=== PATIENT | male | born 1960 | race Two or more races ===

== ENCOUNTER 2023-09-27 14:50 | Inpatient (IN) | payer MEDICARE, OTHER ==
[~2023-09-27] VITALS: Ht 167.6 cm; Wt 72.6 kg
[2023-09-27] MEDS ORDERED: DIPH25TA62 PO (15:21)
[2023-09-27] MEDS ORDERED: HALO5TAB PO (15:21)
[2023-09-27] MEDS ORDERED: QUET100T PO (15:21)
[2023-09-27] MEDS ORDERED: CYCL5POW MC (15:21)
[2023-09-27] MEDS ORDERED: TRIH5TAB3 PO (15:21)
[2023-09-27] MEDS ORDERED: METO5TAB87 PO (15:21)
[2023-09-27] MEDS ORDERED: SERT50TA PO (15:21)
[2023-09-27] MEDS ORDERED: HYDR-4075 PO (15:21)
[2023-09-27] MEDS ORDERED: FLUP5TAB14 PO (15:21)
[2023-09-27] MEDS ORDERED: CHOL400T28 PO (15:21)
[2023-09-27] MEDS ORDERED: NIFE-35 PO (15:21)
[2023-09-27] MEDS ORDERED: MELA5TAB21 PO (15:21)
[2023-09-27] MEDS ORDERED: EPOE200012 SUBCUT (15:21)
[2023-09-27] MEDS ORDERED: DIVA-78 PO (15:21)
[2023-09-27] MEDS ORDERED: HYDR-3974 PO (15:21)
[2023-09-27 15:35] LABS: BASOPHILS # (AUTO) 0.1 K/UL (0.0-0.2); BASOPHILS % (AUTO) 0.8 % (0.0-2.0); EOSINOPHILS # (AUTO) 0.2 K/uL (0.0-0.7); HEMATOCRIT 36.7 % (36.7-47.1); HEMOGLOBIN 11.6 g/dL (12.5-16.3); LYMPHOCYTES # (AUTO) 1.9 K/uL (0.8-4.8); LYMPHOCYTES % (AUTO) 23.3 % (20.5-51.5); MEAN CORPUSCULAR HEMOGLOBIN 31.2 uug (23.8-33.4); MEAN CORPUSCULAR HGB CONC 32 g/dL (32.5-36.3); MEAN CORPUSCULAR VOLUME 98.3 fL (73.0-96.2); NEUTROPHILS # (AUTO) 4.8 K/uL (1.8-8.9); NEUTROPHILS % (AUTO) 59.9 % (38.5-71.5); PLATELET COUNT (AUTO) 203 K/uL (152-348); RED BLOOD CELL COUNT(AUTO) 3.73 MIL/uL (4.06-5.63); RED CELL DISTRIBUTION WIDTH 15.6 % (12.1-16.2)
[2023-09-27 15:45] LABS: DIFFERENTIAL COMMENT 1
[2023-09-27 15:47] LABS: CALCIUM 9.2 mg/dL (8.5-10.1); CARBON DIOXIDE 31 mmol/L (21-32); CHLORIDE 103 mmol/L (98-107); POTASSIUM 3.4 mmol/L (3.5-5.1); SODIUM SERUM 144 mmol/L (136-145); UREA NITROGEN, BLOOD 48 mg/dL (7-18)
[2023-09-27 15:49] LABS: GLUCOSE 49 mg/dL (74-106)
[2023-09-27 15:52] LABS: ALANINE AMINOTRANSFERASE 10 U/L (16-63); ALBUMIN 2.9 g/dL (3.4-5.0); ALKALINE PHOSPHATASE 132 U/L (50-136); ASPARTATE AMINOTRANSFERASE 10 U/L (15-37); BILIRUBIN,DIRECT 0.1 mg/dL (0.0-0.2); BILIRUBIN,TOTAL 0.2 mg/dL (0.2-1.0); TOTAL PROTEIN, SERUM 7.5 g/dL (6.4-8.2)
[2023-09-27 16:00] LABS: THYROID STIMULATING HORMONE 5.138 mIU/mL (0.358-3.740)
[2023-09-27 16:03] LABS: ETHANOL < 3 MG/DL (0-10)
[2023-09-27 16:55] LABS: *BILIRUBIN,URIN NEGATIVE (NEGATIVE); *CLARITY,URINE CLEAR (CLEAR); *COLOR,URINE YELLOW (YELLOW); *KETONES,URINE NEGATIVE (NEGATIVE); *UROBILINOGEN,URINE 0.2 E.U./dl (NORMAL); LEUKOCYTE ESTERASE ,URINE NEGATIVE (NEGATIVE); NITRITE, URINE NEGATIVE (NEGATIVE); UGLUCOSE TRACE (NEGATIVE)
[2023-09-27 17:02] LABS: *BLOOD, URINE TRACE (NEGATIVE); *PROTEIN,URINE 3+ (NEGATIVE)
[2023-09-27 17:08] LABS: *AMPHETAMINE, URINE NEGATIVE (NEGATIVE); *BARBITURATE, URINE NEGATIVE (NEGATIVE); *BENZODIAZEPINE, URINE NEGATIVE (NEGATIVE); *CANNABINOID, URINE NEGATIVE (NEGATIVE); *COCCAINE, URINE NEGATIVE (NEGATIVE); *OPIATE, URINE POSITIVE (NEGATIVE); *PHENCYCLIDINE SCREEN,URINE NEGATIVE (NEGATIVE); FENTANYL, URINE NEGATIVE (NEGATIVE)
[2023-09-27 17:16] LABS: BACTERIA,URINE NONE SEEN /HPF (NONE SEEN); RBC,URINE 0-3 /HPF (0-3); WBC,URINE NONE SEEN /HPF (0-3)
[2023-09-27 17:17] LABS: SQUAMOUS EPITHELIAL CELL,UR FEW /HPF (NONE SEEN)
[2023-09-27] MEDS ORDERED: POTASSIUM BICARBONATE/CIT AC 25 MEQ TABLET.EFF ONE (17:45)
[2023-09-27] MEDS: POTASSIUM BICARBONATE/CIT AC 25 MEQ TABLET.EFF PO ONE (17:53)
[2023-09-27] MEDS: hydrALAZINE HCL 10 MG TABLET PO SCH (17:53)
[2023-09-27] MEDS: DIVALPROEX 500 MG TABLET.DR PO SCH (17:53)
[2023-09-27] MEDS ORDERED: HYDROCODONE/APAP 5-325MG TABLET ONE (18:51)
[2023-09-27] MEDS: HYDROCODONE/APAP 5-325MG TABLET PO ONE (18:53)
[2023-09-27] MEDS ORDERED: IV NS 1000 ML 1,000 ML IV PRN (19:30)
[2023-09-27] MEDS ORDERED: MAGNESIUM HYDROXIDE 30 ML LIQUID UDC PO PRN (19:30)
[2023-09-27] MEDS ORDERED: REMEDY ESSENTIAL ZINC PASTE 113 GM TP PRN (19:30)
[2023-09-27] MEDS ORDERED: CEFTRIAXONE 1 G in IV DEXTROSE 5% 50 ML IV SCH (19:30)
[2023-09-27] MEDS ORDERED: AZITHROMYCIN IV 500 MG in IV DEXTROSE 5% 250 ML IV SCH (19:30)
[2023-09-27] MEDS ORDERED: ONDANSETRON 4 MG/2 ML VIAL IV PRN (19:30)
[2023-09-27] MEDS ORDERED: ACETAMINOPHEN 325 MG TABLET PO PRN (19:30)
[2023-09-27] MEDS ORDERED: DEXTROSE 50% 50 ML DISP.SYRIN IV PRN (20:00)
[2023-09-27 21:16] VITALS: BP 145/68; TEMP 97.8; O2SAT 97
[2023-09-27] MEDS: BLOOD SUGAR DIAGNOSTIC 1 EACH STRIP VI SCH (21:35)
[2023-09-27] MEDS: INSULIN REGULAR, HUMAN 300 UNIT/3 ML VIAL SQ PRN (21:44)
[2023-09-27] MEDS ORDERED: CEFTRIAXONE /D5W 50ML IVPB **ER PYXIS IV ONE (22:15)
[2023-09-27] MEDS ORDERED: AZITHROMYCIN 500MG/ D5W 250ML IVPB **ER PYXIS ONLY IV ONE (22:15)
[2023-09-27] MEDS: CEFTRIAXONE 1 G in IV DEXTROSE 5% 50 ML IV SCH (22:45)
[2023-09-27] MEDS: AZITHROMYCIN IV 500 MG in IV DEXTROSE 5% 250 ML IV SCH (23:43)
[2023-09-27] MEDS: HYDROMORPHONE 1 MG/1 ML DISP.SYRIN IVP PRN (23:43)
[2023-09-28 06:00] VITALS: BP 148/71; TEMP 97.7; O2SAT 99
[2023-09-28 07:28] LABS: BASOPHILS % (AUTO) 0.6 % (0.0-2.0); EOSINOPHILS # (AUTO) 0.3 K/uL (0.0-0.7); EOSINOPHILS % (AUTO) 3.7 % (0.0-7.0); HEMATOCRIT 37.3 % (36.7-47.1); LYMPHOCYTES # (AUTO) 1.9 K/uL (0.8-4.8); LYMPHOCYTES % (AUTO) 25.9 % (20.5-51.5); MEAN CORPUSCULAR HEMOGLOBIN 31.8 uug (23.8-33.4); MEAN CORPUSCULAR HGB CONC 32 g/dL (32.5-36.3); MEAN CORPUSCULAR VOLUME 98.8 fL (73.0-96.2); MONOCYTES # (AUTO) 0.9 K/uL (0.1-1.30); MONOCYTES % (AUTO) 12.4 % (0.0-11.0); NEUTROPHILS # (AUTO) 4.1 K/uL (1.8-8.9); NEUTROPHILS % (AUTO) 57.4 % (38.5-71.5); PLATELET COUNT (AUTO) 181 K/uL (152-348); RED BLOOD CELL COUNT(AUTO) 3.77 MIL/uL (4.06-5.63); RED CELL DISTRIBUTION WIDTH 15.3 % (12.1-16.2); WHITE BLOOD COUNT (AUTO) 7.2 K/uL (3.6-10.2)
[2023-09-28 07:34] LABS: CALCIUM 8.8 mg/dL (8.5-10.1); CREATININE 3.7 mg/dL (0.6-1.3); MAGNESIUM 2.5 mg/dL (1.8-2.4); PHOSPHOROUS 5.4 mg/dL (2.5-4.9); POTASSIUM 4.4 mmol/L (3.5-5.1)
[2023-09-28 07:38] LABS: DIFFERENTIAL COMMENT 1
[2023-09-28] MEDS: SERTRALINE HCL 50 MG TABLET PO SCH (08:15)
[2023-09-28] MEDS: CHOLECALCIFEROL 400 UNITS TABLET PO SCH (08:15)
[2023-09-28] MEDS: NICOTINE 21 MG/24HR PATCH TD SCH (08:17)
[2023-09-28] MEDS: NIFEdipine XL 30 MG TABSR PO SCH (08:17)
[2023-09-28] MEDS ORDERED: SEVE800T8 PO (10:31)
[2023-09-28] MEDS: HYDROCODONE/APAP 10-325 MG TABLET PO PRN (11:19)
[2023-09-28 11:49] VITALS: BP 142/78; TEMP 98.3; O2SAT 98
[2023-09-28 13:16] LABS: FREE T4 (FREE THYROXINE) 0.45 ng/dL (0.76-1.46)
[2023-09-28] MEDS ORDERED: HYDROMORPHONE 1 MG/1 ML DISP.SYRIN IV PRN (14:15)
[2023-09-28 16:20] VITALS: BP 154/71; TEMP 97.9; O2SAT 98
[2023-09-28] MEDS: SEVELAMER CARBONATE 800 MG TABLET PO SCH (16:43)
[2023-09-28] MEDS: QUETIAPINE FUMARATE 100 MG TABLET PO SCH (17:22)
[2023-09-28] MEDS: FLUPHENAZINE HCL 5 MG TABLET PO SCH (17:22)
[2023-09-28] MEDS: HYDROMORPHONE 1 MG/1 ML DISP.SYRIN IV PRN (17:29)
[2023-09-28 19:56] VITALS: BP 159/70; TEMP 98.1; O2SAT 100
[2023-09-28 20:30] VITALS: BP 147/77; O2SAT 99
[2023-09-28] MEDS: MELATONIN 3 MG TABLET PO SCH (20:53)
[2023-09-29 04:50] VITALS: BP 144/75; TEMP 97.1; O2SAT 97
[2023-09-29 07:27] LABS: BASOPHILS % (AUTO) 0.8 % (0.0-2.0); EOSINOPHILS # (AUTO) 0.3 K/uL (0.0-0.7); EOSINOPHILS % (AUTO) 5.2 % (0.0-7.0); HEMATOCRIT 39.6 % (36.7-47.1); HEMOGLOBIN 12.7 g/dL (12.5-16.3); LYMPHOCYTES # (AUTO) 1.7 K/uL (0.8-4.8); LYMPHOCYTES % (AUTO) 26.5 % (20.5-51.5); MEAN CORPUSCULAR HGB CONC 32 g/dL (32.5-36.3); MEAN CORPUSCULAR VOLUME 99.5 fL (73.0-96.2); MONOCYTES # (AUTO) 0.8 K/uL (0.1-1.30); MONOCYTES % (AUTO) 12.9 % (0.0-11.0); NEUTROPHILS # (AUTO) 3.5 K/uL (1.8-8.9); NEUTROPHILS % (AUTO) 54.6 % (38.5-71.5); PLATELET COUNT (AUTO) 191 K/uL (152-348); RED BLOOD CELL COUNT(AUTO) 3.98 MIL/uL (4.06-5.63); RED CELL DISTRIBUTION WIDTH 15.4 % (12.1-16.2); WHITE BLOOD COUNT (AUTO) 6.4 K/uL (3.6-10.2)
[2023-09-29 07:29] LABS: DIFFERENTIAL COMMENT 1
[2023-09-29 07:46] LABS: ALBUMIN 2.6 g/dL (3.4-5.0); BILIRUBIN,TOTAL 0.2 mg/dL (0.2-1.0); CALCIUM 8.5 mg/dL (8.5-10.1); CREATININE 4.4 mg/dL (0.6-1.3); MAGNESIUM 2.6 mg/dL (1.8-2.4); PHOSPHOROUS 6.4 mg/dL (2.5-4.9); POTASSIUM 5.1 mmol/L (3.5-5.1); TOTAL PROTEIN, SERUM 6.9 g/dL (6.4-8.2)
[2023-09-29] MEDS: CHOLECALCIFEROL 1,000 UNIT TABLET PO SCH (08:23)
[2023-09-29 11:21] VITALS: BP 145/79; TEMP 98.4; O2SAT 100
[2023-09-29] MEDS: DOXYCYCLINE HYCLATE 100 MG TABLET PO SCH (12:34)
[2023-09-29 15:47] VITALS: BP 150/76; TEMP 97.6; O2SAT 99
[2023-09-29 19:52] VITALS: BP 118/67; TEMP 97.6; O2SAT 97
[2023-09-29] MEDS: MUPIROCIN 2% OINT 22 GM TUBE NS SCH (20:50)
[2023-09-29] MEDS ORDERED: AZITHROMYCIN IV 500 MG in IV DEXTROSE 5% 250 ML IV SCH (23:00)
[2023-09-30 06:09] VITALS: BP 137/72; TEMP 98; O2SAT 97
[2023-09-30] MEDS ORDERED: NICOTINE 14 MG/24HR PATCH TD SCH (14:30)
[2023-09-30 16:00] VITALS: BP 162/89; TEMP 97.6; O2SAT 100
[2023-09-30 20:19] VITALS: BP 152/83; TEMP 98.1; O2SAT 97
[2023-10-01 00:08] LABS: HEPATITIS B CORE AB, IgM Negative (Negative); HEPATITIS B CORE AB, TOTAL Positive (Negative); HEPATITIS B SURFACE AB, QUAL Non Reactive (.); HEPATITIS B SURFACE AG Negative (Negative); HEPATITIS C VIRUS ANTIBODY Reactive (Non Reactive)
[2023-10-01 06:48] VITALS: BP 140/79; TEMP 98.5; O2SAT 95
[2023-10-01 07:25] LABS: CALCIUM 8.8 mg/dL (8.5-10.1); CREATININE 4.8 mg/dL (0.6-1.3); POTASSIUM 5.6 mmol/L (3.5-5.1)
[2023-10-01] MEDS: NICOTINE 14 MG/24HR PATCH TD SCH (08:40)
[2023-10-01 11:32] VITALS: BP 117/77; TEMP 98.3; O2SAT 98
[2023-10-01] MEDS ORDERED: AMOX-430 PO (12:12)
[2023-10-01 15:47] VITALS: BP 128/75; TEMP 98; O2SAT 99
[2023-10-01 16:25] VITALS: BP 128/75
== END 2023-10-01 19:25 | DRG 193 ==
LOC: ER 14:50 → MEDSURG3 20:53
PROVIDERS: ADMIT Nurse Practitioner Acute Care; ATTEND Nurse Practitioner Acute Care
PROC: 5A1D70Z Performance of Urinary Filtration, Intermittent, Less than 6 Hours Per Day (ICD-10-PCS; principal; 2023-09-30)
DX: J15.9 Unspecified bacterial pneumonia (principal); G93.41 Metabolic encephalopathy; N18.6 End stage renal disease; E44.0 Moderate protein-calorie malnutrition; I12.0 Hypertensive chronic kidney disease with stage 5 chronic kidney disease or end stage renal disease; E87.1 Hypo-osmolality and hyponatremia; R62.7 Adult failure to thrive; Z68.25 Body mass index [BMI] 25.0-25.9, adult; E11.22 Type 2 diabetes mellitus with diabetic chronic kidney disease; Z99.2 Dependence on renal dialysis; Z79.4 Long term (current) use of insulin; E03.9 Hypothyroidism, unspecified; N40.0 Benign prostatic hyperplasia without lower urinary tract symptoms; Z22.322 Carrier or suspected carrier of Methicillin resistant Staphylococcus aureus; D63.1 Anemia in chronic kidney disease; Z86.19 Personal history of other infectious and parasitic diseases; F32.A Depression, unspecified; R13.10 Dysphagia, unspecified; M89.8X9 Other specified disorders of bone, unspecified site; E87.5 Hyperkalemia; E88.09 Other disorders of plasma-protein metabolism, not elsewhere classified; E83.41 Hypermagnesemia
CPT/HCPCS: 36415; 71045; 83735; 84100; 84443; 85025; 86704; 86705; 86706; 86803; 87040; 87340; A4663; G0378; G0480; J0456; J0696; J1170; J1815; J7040; J7050